=== PATIENT | male | born 1960 | race Caucasian/White ===

== ENCOUNTER → 2018-01-11 09:39 | Outpatient (CLI) | payer OTHER, SELFPAY ==
[2018-01-11 11:05] LABS: AST(SGOT) 35 U/L (15-37); Alanine Aminotransfer ALT/SGPT 27 U/L (16-61); Albumin, Serum 3.7 g/dL (3.2-5.0); Alkaline Phosphatase 75 U/L (45-117); Anion Gap 8 (5-15); BUN 21 mg/dL (7-18); BUN/Creat Ratio 16.3 RATIO (10-20); Calcium,Total 8.3 mg/dL (8.5-10.1); Chloride 107 mmol/L (98-107); Cholesterol 214 mg/dL (200); Creatinine, Serum 1.29 mg/dL (0.70-1.30); EST Glomerular Filtration Rate 61 mL/min (>60); Est Glom Filt Rate - Afr Amer 74 mL/min (>60); Globulin 3.8 g/dL (2.2-4.2); Glucose 94 mg/dL (74-106); High Density Lipoprotein 45 mg/dL; PSA,Total - Annual Screen 0.75 ng/mL (0.00-4.00); Potassium 3.9 mmol/L (3.5-5.1); Protein, Total 7.5 g/dL (6.4-8.2); Sodium Level 142 mmol/L (136-145); Thyroid Stim Hormone (TSH) 2.08 uIU/mL (0.358-3.74); Triglycerides 167 mg/dL; Very Low Density Lipoprotein 33 mg/dL (5-40)
== END ==
DX: F51.02 Adjustment insomnia (principal); F90.9 Attention-deficit hyperactivity disorder, unspecified type; E78.5 Hyperlipidemia, unspecified; Z12.5 Encounter for screening for malignant neoplasm of prostate; E03.9 Hypothyroidism, unspecified
CPT/HCPCS: 36415; 80053; 80061; 84153; 84443; G0103

== ENCOUNTER → 2018-09-28 08:51 | Outpatient (CLI) | payer OTHER, SELFPAY ==
[2018-09-28 09:23] LABS: Erythrocyte Sedimentation Rate 8 mm/hr (0-20)
[2018-09-28 09:24] LABS: Absolute Lymphocyte Count 1.51 X10^3/ul (0.83-4.51); Basophil# 0.03 X10^3/uL; Basophil% 0.6 % (0-1); Eosinophil# 0.12 X10^3/uL; Eosinophils% 2.3 % (0-5); Hemoglobin 14.8 g/dl (13.0-16.5); Lymphocyte # 1.51 X10^3/ul (4.0); Lymphocyte % 28.4 % (19-41); Mean Corp Hgb Conc 35.2 g/gl (32-36); Mean Corpuscular Hgb 30.7 pg (27.0-32.0); Mean Corpuscular Volume 87.1 fL (80-94); Monocyte# 0.66 X10^3/uL; Monocyte% 12.4 % (0-10); Neutrophil # 2.99 X10^3/uL (2.7-7.7); Neutrophil % 56.1 % (47-70); POSITIVE COUNT NO; POSITIVE DIFFERENTIAL NO; POSITIVE MORPHOLOGY NO; Platelet Count 184 K/mm3 (150-450); RBC Distribution Width CV 12.5 % (11.6-14.6); RBC Distribution Width SD 39.4 fl (35.1-43.9); Red Blood Count 4.82 M/mm3 (4.6-6.2); White Blood Count 5.3 K/mm3 (4.4-11.0)
[2018-09-28 09:52] LABS: AST(SGOT) 24 U/L (15-37); Alanine Aminotransfer ALT/SGPT 29 U/L (16-61); Albumin, Serum 3.7 g/dL (3.2-5.0); Alkaline Phosphatase 75 U/L (45-117); Anion Gap 7 (5-15); BUN 17 mg/dL (7-18); Calcium,Total 8.3 mg/dL (8.5-10.1); Chloride 107 mmol/L (98-107); Cholesterol 230 mg/dL (200); Creatinine, Serum 1.13 mg/dL (0.70-1.30); EST Glomerular Filtration Rate 71 mL/min (>60); Est Glom Filt Rate - Afr Amer 85 mL/min (>60); Globulin 3.7 g/dL (2.2-4.2); Glucose 98 mg/dL (74-106); High Density Lipoprotein 52 mg/dL; Protein, Total 7.4 g/dL (6.4-8.2); Rheumatoid Factor < 10.0 IU/mL (<15); Sodium Level 143 mmol/L (136-145); Thyroid Stim Hormone (TSH) 3.05 uIU/mL (0.358-3.74); Triglycerides 174 mg/dL; Uric Acid 5.7 mg/dL (3.5-7.2); Very Low Density Lipoprotein 35 mg/dL (5-40)
[2018-09-28 09:53] LABS: Vitamin D,25 Hydroxy 47.4 ng/mL (29.95-100.01)
[2018-09-30 13:29] LABS: ANTINUCLEAR ANTIBODIES DIRECT Negative (Negative)
[2018-10-01 11:30] LABS: ASO Titer 72.2 IU/mL (0.0-200.0)
== END ==
DX: E03.9 Hypothyroidism, unspecified (principal); E55.9 Vitamin D deficiency, unspecified; M25.50 Pain in unspecified joint; F41.1 Generalized anxiety disorder; E78.5 Hyperlipidemia, unspecified
CPT/HCPCS: 36415; 80053; 80061; 82306; 84443; 84550; 85025; 85652; 86038; 86060; 86431

== ENCOUNTER 2018-11-04 17:49 | Emergency (ER) | payer OTHER, SELFPAY ==
[2018-11-04] VITALS (8 sets, daily range): BP systolic 133–188; BP diastolic 83–104; PULSE 56–65; RESP 15–17; TEMP 35.7; O2SAT 96–99; BMI 31.8
--- NOTE | 2018-11-04 18:15 | EKG12_ITS ---
Test Reason : CHEST PAIN Blood Pressure : / mmHG Vent. Rate : 056 BPM Atrial Rate : 056 BPM P-R Int : 166 ms QRS Dur : 088 ms QT Int : 418 ms P-R-T Axes : 000 -37 011 degrees QTc Int : 403 ms Sinus bradycardia with sinus arrhythmia Left axis deviation Minimal voltage criteria for LVH, may be normal variant Septal infarct , age undetermined Abnormal ECG Confirmed by DARA LEÓN ([id number]), purchasing expeditor NEERU JENKINS ([id number]) on 11/22/2018 4:10:13 PM Referred By: JONI Confirmed By:DARA LEÓN
--- NOTE | 2018-11-04 18:18 | ED.VISSUMM ---
- ER Visit Summary Date of Service: 11/04/18 Chief Complaint: chest pressure History of Present Illness: The patient is a 58 M who presents for chest pressure with onset earlier today. Patient began having left-sided chest pressure with no radiation to the neck, arm, back, abdomen or right chest. It waxes and wanes in intensity. Patient was at work and under stress, running around when it started. He feels it got worse with exertion. He did not note anything that alleviated it. No associated cough, shortness of breath, sweating, nausea or vomiting, lightheadedness, fever, or any other symptoms. He took a full aspirin 2 hours ago. He noted his blood pressure to be elevated. He has no history of hypertension. No history of coronary artery disease, lung disease, diabetes, hypertension, diagnosed hypercholesterolemia. He does not smoke or drink alcohol. Physical Examination: Vital signs: afebrile, hypertensive at 188/104, no hypoxia on room air General: well nourished, well developed, in no distress Skin: warm, dry, no rash, no pallor HEENT: normocephalic and atraumatic; PERRL, EOMI, moist mucous membranes Cardiovascular: regular rate and rhythm without murmurs, no peripheral edema, 2+ pulses all distal extremities Respiratory: No increased work of breathing, lungs are clear to auscultation bilaterally, no rales, rhonchi or wheezing Abdominal: Abdomen is soft, nontender with normoactive bowel sounds, no guarding or rebound, no masses MSK: Moves all extremities, no deformities, normal strength Neuro: Awake and alert, oriented ?4. No facial droop, sensation and motor function intact and symmetric Test Results: Abnormal Lab Results 11/04/18 11/04/18 11/04/18 18:04 18:04 21:10 WBC 6.8 RBC 4.93 Hgb 15.1 Hct 42.7 MCV 86.6 MCH 30.6 MCHC 35.4 RDW 12.5 RDW Differential 38.8 Plt Count 205 MPV 9.1 Immature Gran % (Auto) 0.100 Neut % (Auto) 58.4 Lymph % (Auto) 27.9 Alfalfa % (Auto) 11.7 H Eos % (Auto) 1.5 Baso % (Auto) 0.4 Absolute Neuts (auto) 4.0 Absolute Lymphs (auto) 1.90 Total Counted Not Reportable Sodium 141 Potassium 3.8 Chloride 104 Carbon Dioxide 27.0 Anion Gap 10 BUN 16 Creatinine 1.04 Estim Creat Clear Calc 81.45 Est GFR (MDRD) Af Amer 94 Est GFR (MDRD) Non-Af 78 BUN/Creatinine Ratio 15.4 Glucose 92 Calcium 8.8 Troponin I < 0.015 < 0.015 Clinical Impression(s) from Imaging Studies Chest X-Ray 11/04/18 18:38 IMPRESSION: Normal x-ray examination of the chest. Electronically Signed: Sam Waller MD at 18:59 EST , Service support , Medications Given Discontinued Medications Nitroglycerin (Nitrostat) 0.4 mg SUBLINGUAL Q5M BILL Stop: 11/04/18 18:26 Last Admin: 11/04/18 18:52 Dose: Not Given Admin: 11/04/18 18:51 Dose: Not Given Admin: 11/04/18 18:30 Dose: 0.4 mg Nitroglycerin (Nitrostat) 0.4 mg SUBLINGUAL X1 ONE Stop: 11/04/18 20:55 Last Admin: 11/04/18 20:55 Dose: 0.4 mg Emergency Department Course and Treatment: Patient took aspirin prior to arrival. He was given nitroglycerin, as he is still having very low level chest pressure rated 1 out of 10. Chest pain workup was performed. EKG showed a sinus rhythm with no ischemic changes. Initial troponin negative. Chest x-ray showed no acute process. CBC and BMP were unremarkable. Patient was pain-free on reevaluation. His blood pressure improved with rest during his workup. We discussed his risk factors for acute coronary syndrome, and given his age and medical history, he has a HEART score of 3. A 3-hour repeat EKG and troponin were unchanged from the initial ones. Patient's blood pressure at time of discharge was 133/86, much improved from his initial hypertension at presentation. We discussed that patient needs to follow-up with his primary care doctor for repeat evaluation of his blood pressure, as he may require antihypertensives. None were started today. Patient is to follow-up with his primary care doctor for further discussion of his chest pain and possible stress test. Patient agreed with this plan was discharged home in improved condition. Treatment Plan: [] Disposition: [] Impression: Chest pain, hypertension This note was generated with Transfer To dictation software. It may contain incorrect words, spelling, and punctuation that were not noted in review of the chart prior to signing ED Disposition - Plan for ED Patient: Disposition: Home or Assisted Living Chief Complaint: Chest Pain Instructions: ED Chest Pain Atypical Unkn Cause, ED Hypertension Poss Referrals: [facility] Doctor,Out of [Primary Care Provider] - Additional Instructions: Follow-up with your doctor as soon as possible for reevaluation of your blood pressure. Also follow-up for further workup of your chest pain. EKGs and troponins today did not show any signs of a heart attack, however you would benefit from a stress test and further close monitoring by your doctor. If you have any worsening of your condition or any new concerning symptoms, please return immediately to the emergency department for another evaluation.
[2018-11-04 18:25] LABS: Basophil# 0.03 X10^3/uL; Basophil% 0.4 % (0-1); Eosinophils% 1.5 % (0-5); Hematocrit 42.7 % (40-54); Hemoglobin 15.1 g/dl (13.0-16.5); Lymphocyte % 27.9 % (19-41); Mean Corp Hgb Conc 35.4 g/gl (32-36); Mean Corpuscular Hgb 30.6 pg (27.0-32.0); Mean Corpuscular Volume 86.6 fL (80-94); Mean Platelet Vol. 9.1 fl (6.2-12.0); Monocyte% 11.7 % (0-10); Neutrophil # 3.97 X10^3/uL (2.7-7.7); Neutrophil % 58.4 % (47-70); Platelet Count 205 K/mm3 (150-450); RBC Distribution Width CV 12.5 % (11.6-14.6); RBC Distribution Width SD 38.8 fl (35.1-43.9); Red Blood Count 4.93 M/mm3 (4.6-6.2); White Blood Count 6.8 K/mm3 (4.4-11.0)
[2018-11-04 18:26] LABS: POSITIVE COUNT NO; POSITIVE DIFFERENTIAL NO; POSITIVE MORPHOLOGY NO
[2018-11-04 18:37] LABS: Anion Gap 10 (5-15); BUN 16 mg/dL (7-18); BUN/Creat Ratio 15.4 RATIO (10-20); Calcium,Total 8.8 mg/dL (8.5-10.1); Chloride 104 mmol/L (98-107); Creatinine, Serum 1.04 mg/dL (0.70-1.30); EST Glomerular Filtration Rate 78 mL/min (>60); Est Glom Filt Rate - Afr Amer 94 mL/min (>60); Estimated Creatinine Clearance 81.45 ml/min; Glucose 92 mg/dL (74-106); Potassium 3.8 mmol/L (3.5-5.1); Sodium Level 141 mmol/L (136-145)
--- NOTE | 2018-11-04 18:38 | RAD_ITS ---
STUDY: X-RAY CHEST REASON FOR EXAM: Male, 58 years old. Chest pain/pressure TECHNIQUE: PA and lateral views of the chest. COMPARISON: None. FINDINGS: EKG leads overlie the chest The lungs are clear and expanded. There is no demonstrated pleural abnormality. Normal size heart. Normal mediastinum and joseph. Normal visualized pulmonary arteries. Normal visualized aortic arch and descending thoracic aorta. Normal visualized thoracic spine. Normal visualized ribs, clavicles, and shoulders. There is no demonstrated abnormality of the visualized soft tissue structures of the upper abdomen. RAD/Chest PA and Lateral IMPRESSION: Normal x-ray examination of the chest. Electronically Signed: Sam Waller MD at 18:59 EST , Service support ,
--- NOTE | 2018-11-04 21:51 | ED.DEP ---
ED Disposition - Plan for ED Patient: Disposition: Home or Assisted Living Chief Complaint: Chest Pain Instructions: ED Chest Pain Atypical Unkn Cause, ED Hypertension Poss Referrals: [facility] Doctor,Out of [Primary Care Provider] - Additional Instructions: Follow-up with your doctor as soon as possible for reevaluation of your blood pressure. Also follow-up for further workup of your chest pain. EKGs and troponins today did not show any signs of a heart attack, however you would benefit from a stress test and further close monitoring by your doctor. If you have any worsening of your condition or any new concerning symptoms, please return immediately to the emergency department for another evaluation.
== END 2018-11-04 22:10 | disposition home or self-care (01) ==
PROVIDERS: Emergency Provider Emergency Medicine
DX: R07.89 Other chest pain (principal); I10 Essential (primary) hypertension
CPT/HCPCS: 36415; 71046; 80048; 84484; 85025; 93005; 99285; A4216

== ENCOUNTER → 2019-01-02 12:25 | Outpatient (CLI) | payer OTHER, SELFPAY ==
[2018-12-20 13:05] VITALS: BMI 31.9
--- NOTE | 2019-01-02 12:43 | CT_ITS ---
STUDY: CT ABDOMEN AND PELVIS WITH CONTRAST REASON FOR EXAM: Male, 58 years old. Abdominal pain. RADIATION DOSAGE (If Supplied By Facility): CTDIvol = ( 17.17 ) mGy, DLP = ( 1102.04 ) mGycm TECHNIQUE: Transaxial images were obtained from the dome of the diaphragm to the symphysis pubis without oral contrast. Isovue 300 100ml IV/Oral was administered. Sagittal and coronal images were reconstructed. Individualized dose optimization techniques were used for this CT. COMPARISON: None. FINDINGS: The visualized lung bases are unremarkable. The visualized portions of the heart are within normal limits. Normal liver. Normal gallbladder and extrahepatic biliary system. Normal spleen. Normal pancreas. Normal bilateral adrenal glands. Normal right kidney. Normal left kidney. Normal visualized stomach. Normal small intestine. There are multiple colonic diverticula consistent with diverticulosis. The appendix is visualized and appears normal. Normal abdominal aorta. Normal inferior vena cava. Normal retroperitoneum. Mild degree of diffuse bladder wall thickening. There are prostatic calcifications. Bilateral inguinal hernias containing fat worse on the left side. There are mild degenerative changes of the visualized lumbar spine. CT/Abdomen/Pelvis WITH Contrast IMPRESSION: Bilateral inguinal hernias containing fat worse on the left side. Prostatic calcification. Bladder wall thickening. Electronically Signed: Frank Montes MD at 15:43 EST , Service support ,
[2019-01-02 12:45] LABS: Absolute Lymphocyte Count 1.74 X10^3/ul (0.83-4.51); Absolute Neutrophil Count 4.1 X10^3/uL (2.0-7.7); Basophil# 0.02 X10^3/uL; Basophil% 0.3 % (0-1); Eosinophil# 0.07 X10^3/uL; Eosinophils% 1.1 % (0-5); Hematocrit 46.7 % (40-54); Hemoglobin 15.6 g/dl (13.0-16.5); Lymphocyte # 1.74 X10^3/ul (4.0); Lymphocyte % 26.1 % (19-41); Mean Corp Hgb Conc 33.4 g/gl (32-36); Mean Corpuscular Hgb 29.8 pg (27.0-32.0); Mean Corpuscular Volume 89.1 fL (80-94); Mean Platelet Vol. 9.3 fl (6.2-12.0); Monocyte# 0.72 X10^3/uL; Monocyte% 10.8 % (0-10); Neutrophil % 61.5 % (47-70); Platelet Count 187 K/mm3 (150-450); RBC Distribution Width CV 12.8 % (11.6-14.6); RBC Distribution Width SD 41.7 fl (35.1-43.9); Red Blood Count 5.24 M/mm3 (4.6-6.2); White Blood Count 6.7 K/mm3 (4.4-11.0)
[2019-01-02 12:46] LABS: POSITIVE COUNT NO; POSITIVE DIFFERENTIAL NO; POSITIVE MORPHOLOGY NO
[2019-01-02 13:19] LABS: AST(SGOT) 20 U/L (15-37); Alanine Aminotransfer ALT/SGPT 29 U/L (16-61); Albumin, Serum 4.2 g/dL (3.2-5.0); Alkaline Phosphatase 91 U/L (45-117); Anion Gap 9 (5-15); BUN 13 mg/dL (7-18); BUN/Creat Ratio 10.6 RATIO (10-20); Calcium,Total 9.2 mg/dL (8.5-10.1); Chloride 102 mmol/L (98-107); Creatinine, Serum 1.23 mg/dL (0.70-1.30); EST Glomerular Filtration Rate 64 mL/min (>60); Est Glom Filt Rate - Afr Amer 77 mL/min (>60); Globulin 4.2 g/dL (2.2-4.2); Glucose 105 mg/dL (74-106); Potassium 4.2 mmol/L (3.5-5.1); Protein, Total 8.4 g/dL (6.4-8.2); Sodium Level 139 mmol/L (136-145)
== END ==
PROVIDERS: Family Provider Nurse Practitioner Family; PCP Nurse Practitioner Family; Referring Provider Nurse Practitioner Family; Visit Provider Nurse Practitioner Family
DX: R10.9 Unspecified abdominal pain (principal); K92.1 Melena; R11.0 Nausea
CPT/HCPCS: 36415; 74177; 80053; 85025; Q9967

== ENCOUNTER → 2019-01-03 06:32 | Outpatient (CLI) | payer OTHER, SELFPAY ==
[2018-12-20 13:05] VITALS: BMI 31.9
--- NOTE | 2019-01-03 06:34 | ECHOD_ITS ---
Reason For Study: HYPERTENSION Procedure This was a 2D Doppler, Color Flow transthoracic echocardiogram. Exam performed in department. Left Ventricle Normal LV size. Left ventricular systolic function is normal. The estimated ejection fraction is 55 %. Stage 1 diastolic dysfunction. No regional wall motion abnormalities noted. Right Ventricle Normal RV size. Normal systolic function. Atria Normal left atrium. Normal right atrium. Bubble contrast study negative for right to left interatrial shunt. Mitral Valve Normal mitral valve. Tricuspid Valve Normal tricuspid valve. Aortic Valve Trisinus/trileaflet aortic valve. Pulmonic Valve Normal pulmonic valve. Great Vessels Normal aortic root. The pulmonary artery is normal size. Normal inferior vena cava. Pericardium/Pleural No pericardial effusion. Medication Performed a rapid injection of agitated mix of 9 cc saline and 1cc air to assess for atrial septal defect. MMode/2D Measurements & Calculations LVIDd: 4.8 cm IVSd: 0.94 cm Ao root diam: 3.2 cm LVIDs: 3.4 cm LVPWd: 0.95 cm RVDd: 4.1 cm FS: 28.3 % LAV(MOD-bp): 42.3 ml LVAd ap4: 34.0 cm2 SV(MOD-sp4): 67.6 ml LAV(MOD-bp) Indexed: 19.0 ml/m2 EDV(MOD-sp4): 111.3 ml LAV(MOD-sp2): 53.2 ml EDV(sp4-el): 112.3 ml LAV(MOD-sp4): 29.7 ml LVAs ap4: 18.6 cm2 ESV(MOD-sp4): 43.7 ml ESV(sp4-el): 43.3 ml EF(MOD-sp4): 60.7 % EF(sp4-el): 61.5 % SV(sp4-el): 69.1 ml LA A4 area: 13.8 cm2 LA dimension(2D): 3.7 cm RA A4 area: 11.8 cm2 Time Measurements MV dec time: 0.29 sec Doppler Measurements & Calculations MV E max smith: 38.9 cm/sec Lat Peak E' Smith: 8.8 cm/sec Med Peak E' Smith: 8.0 cm/sec MV A max smith: 92.5 cm/sec E/E' lat: 4.4 E/E' med: 4.9 MV E/A: 0.42 Ao V2 max: 135.1 cm/sec LV V1 max: 104.1 cm/sec PA V2 max: 88.1 cm/sec Ao max P.3 mmHg LV V1 max P.3 mmHg Interpretation Summary Normal LV size. Left ventricular systolic function is normal. The estimated ejection fraction is 55 %. No regional wall motion abnormalities noted. Stage 1 diastolic dysfunction. Bubble contrast study negative for right to left interatrial shunt. Ordering Physician: Zach Clarke Referring Physician: Zach Clarke Performed By: Julianna Garcia RDCS
[2019-01-05 11:32] LABS: H. PYLORI STOOL AG Negative (Negative)
== END ==
PROVIDERS: Referring Provider Internal Medicine Cardiovascular Disease; Visit Provider Internal Medicine Cardiovascular Disease
DX: I10 Essential (primary) hypertension (principal); R07.9 Chest pain, unspecified; R10.9 Unspecified abdominal pain; K92.1 Melena
CPT/HCPCS: 78452; 82274; 93017; 93306; A9500; A4216

== ENCOUNTER → 2019-01-22 13:18 | Outpatient (CLI) | payer OTHER, SELFPAY ==
[2018-12-20 13:05] VITALS: BMI 31.9
--- NOTE | 2019-01-03 09:13 | STRESSREP ---
Stress Test Report Exercise myocardial perfusion stress test. 58-year-old man with a history of chest pain. Stress protocol: Resting EKG demonstrates normal sinus rhythm with a rate of 61 bpm normal intervals are noted resting blood pressure 116/80 mmHg. The patient exercised according to regular Andrzej protocol for a total duration of 12 minutes the maximum heart rate attained was 151 bpm which was 93% of maximum predicted heart rate the maximum workload was 13.7 metabolic equivalents. Patient completed stage IV of the Andrzej protocol. At rest there were no ST or T wave changes noted suggest ischemia at peak exercise upsloping ST changes only were noted with no meet the criteria for ischemia. No clinical angina was noted. The resting blood pressure was 116/80 mmHg with a peak blood pressure 164/76 mmHg rate pressure product was 24,600. Myocardial perfusion protocol. 14.2 mCi of technetium 99m sestamibi was injected at rest. The patient exercised according to regular Andrzej protocol for 12 minutes at peak exercise 43.9 mCi of technetium 99m sestamibi was injected stress images were obtained stress and rest images were reconstructed and compared in the short axis vertical long horizontal long axis. Gated images were also obtained per Perfusion SPECT analysis: Review of the stress images demonstrate normal uptake of tracer noted in all areas of the myocardium. The resting images similarly demonstrate normal uptake of tracer noted in all areas myocardium. No areas of reversibility are noted suggest ischemia. Gated SPECT analysis: Gated ejection fraction is noted to be 58%. Conclusion: Normal exercise myocardial perfusion stress test at a high workload. Preserved ejection fraction. Excellent functional capacity.
--- NOTE | 2019-01-03 09:17 | STRESSREP_ITS ---
Stress Test Report Exercise myocardial perfusion stress test. 58-year-old man with a history of chest pain. Stress protocol: Resting EKG demonstrates normal sinus rhythm with a rate of 61 bpm normal intervals are noted resting blood pressure 116/80 mmHg. The patient exercised according to regular Andrzej protocol for a total duration of 12 minutes the maxi mum heart rate attained was 151 bpm which was 93% of maximum predicted heart rate the maximum workload was 13.7 metabolic equivalents. Patient completed stage IV of the Andrzej protocol. At rest there were no ST or T wave changes noted suggest ischemia at peak exercise upsloping ST changes only were noted with no meet the criteria for ischemia. No clinical angina was noted. The resting blood pressure was 116/80 mmHg with a peak blood pressure 164/76 mmHg rate pressure product was 24,600. Myocardial perfusion protocol. 14.2 mCi of technetium 99m sestamibi was injected at rest. The patient e xercised according to regular Andrzej protocol for 12 minutes at peak exercise 43.9 mCi of technetium 99m sestamibi was injected stress images were obtained stress and rest images were reconstructed and compared in the short axis vertical long horizontal long axis. Gated images were also obtained per Perfusion SPECT analysis: Review of the stress images demonstrate normal uptake of tracer noted in all areas of the myocardium. The resting images similarly demonstrate normal uptake of tracer noted in all areas myocardium. No areas of reversibility are noted suggest ischemia. Gated SPECT analysis: Gated ejection fraction is noted to be 58%. Conclusion: Normal exercise myocardial perfusion stress test at a high workload. Preserved ejection fraction. Excellent functional capacity.
--- NOTE | 2019-01-22 13:25 | CT_ITS ---
STUDY: CT CHEST WITHOUT CONTRAST REASON FOR EXAM: Male, 58 years old. Chest pain. Calcium scoring examination. Radiological over read study. RADIATION DOSAGE (If Supplied By Facility): CTDIvol = ( 12.19 ) mGy, DLP = ( 243.79 ) mGycm TECHNIQUE: Transaxial imaging was performed without the administration of intravenous contrast material. Individualized dose optimization techniques were used for this CT. COMPARISON: None. FINDINGS: Small bilateral axillary lymph nodes. Mild degree of dependent bibasilar atelectasis. There is no demonstrated pleural abnormality. Normal heart and pericardium. There are multiple small lymph nodes within the mediastinum, which are normal in size and morphology most compatible with reactive lymph hyperplasia. Normal hilar regions. Normal unenhanced pulmonary arteries. Normal aorta arch and descending thoracic aorta. There are multi-level degenerative changes of the thoracic spine. There is no demonstrated abnormality of the visualized upper abdomen. CT/Limited Chest CT w/CCTA IMPRESSION: Mild degree of dependent bibasilar atelectasis. Electronically Signed: Frank Montes, at 9:55 EDT , Service support ,
[2019-01-22 13:37] VITALS: BP 132/76; PULSE 60; RESP 16; O2SAT 96; BMI 30.9
--- NOTE | 2019-01-22 19:17 | CA.SCORE ---
Calcium Scoring Date of Study:: 01/22/19 Coronary Calcium Scoring: Coronary calcium score. High-resolution computed tomographic imaging of the chest was performed on 01/22/2019. Those particular attention paid to the coronary arteries. Images from the examination were analyzed for the presence and extent of coronary artery calcification using the coronary calcification cortication software. The patient tolerated the procedure well and there were no complications. The results of the coronary consultation analysis are provided below along with cross-sectional images. Coronary artery Left main score 0 Left anterior descending artery score 0 Left circumflex artery score 0 Right coronary artery score 0 Total Manjit score 0 The patient is noted to be in the 0 percentile ranking range. Interpretation: The above suggests no identifiable atherosclerotic plaque with very low cardiovascular disease risk.
== END ==
PROVIDERS: Referring Provider Internal Medicine Cardiovascular Disease; Visit Provider Internal Medicine Cardiovascular Disease
DX: R07.9 Chest pain, unspecified (principal)
CPT/HCPCS: 75571; 76380

== ENCOUNTER → 2019-07-20 10:47 | Outpatient (CLI) | payer OTHER, SELFPAY ==
[2019-01-24 08:33] VITALS: BMI 30.9
[2019-07-20 11:01] LABS: Mucous, Urine 0 SEEN /hpf (<or=2+)
[2019-07-20 11:58] LABS: Hematocrit 43.1 % (40-54); Hemoglobin 14.5 g/dL (13.0-16.5); Mean Corp Hgb Conc 33.6 g/dL (32-36); Mean Corpuscular Hgb 30.3 pg (27.0-32.0); Mean Platelet Vol. 9.1 fl (6.2-12.0); Platelet Count 206 K/mm3 (150-450); RBC Distribution Width CV 12.2 % (11.6-14.6); RBC Distribution Width SD 40.2 fl (35.1-43.9); Red Blood Count 4.79 M/mm3 (4.6-6.2); White Blood Count 6.2 K/mm3 (4.4-11.0)
[2019-07-20 12:04] LABS: Color, Urine Yellow (Yellow); Glucose, Dipstick Normal (Normal); Ketone-Dipstick Negative (Negative); Leukocyte Esterase-Dipstick Negative /ul (Negative); Nitrite-Dipstick Negative (Negative); Occult Blood-Urine 10 /ul (Negative); Protein-Dipstick Negative (Negative); Urine Bilirubin Dipstick Negative (Negative); Urine Clarity Clear (Clear); Urine Urobilinogen 1 mg/dl (Normal); Urine pH 6.5 (5.0 - 8.0)
[2019-07-20 12:12] LABS: White Blood Cells 0-5 SEEN /hpf (0-5)
[2019-07-20 12:13] LABS: Bacteria RARE /hpf (None Seen); Red Blood Cells-Urine 0-5 SEEN /hpf (0-5); Squamous Epithelial Cells - UA 0-5 SEEN /hpf (0-5)
[2019-07-20 12:41] LABS: AST(SGOT) 23 U/L (15-37); Alanine Aminotransfer ALT/SGPT 27 U/L (16-61); Albumin, Serum 3.7 g/dL (3.2-5.0); Alkaline Phosphatase 78 U/L (45-117); Anion Gap 7 (5-15); BUN 20 mg/dL (7-18); BUN/Creat Ratio 19.8 RATIO (10-20); Calcium,Total 8.6 mg/dL (8.5-10.1); Chloride 109 mmol/L (98-107); Cholesterol 216 mg/dL (200); Creatinine, Serum 1.01 mg/dL (0.70-1.30); EST Glomerular Filtration Rate 80 mL/min (>60); Est Glom Filt Rate - Afr Amer 97 mL/min (>60); Globulin 3.7 g/dL (2.2-4.2); Glucose 99 mg/dL (74-106); High Density Lipoprotein 54 mg/dL; Protein, Total 7.4 g/dL (6.4-8.2); Sodium Level 143 mmol/L (136-145); Thyroid Stim Hormone (TSH) 1.35 uIU/mL (0.358-3.74); Triglycerides 140 mg/dL; Very Low Density Lipoprotein 28 mg/dL (5-40); Vitamin D,25 Hydroxy 50.9 ng/mL (29.95-100.01)
== END ==
DX: E78.2 Mixed hyperlipidemia (principal); G25.81 Restless legs syndrome; E55.9 Vitamin D deficiency, unspecified
CPT/HCPCS: 36415; 80053; 80061; 81001; 82306; 84443; 85027

== ENCOUNTER → 2020-03-26 10:06 | Outpatient (CLI) | payer OTHER, SELFPAY ==
[2020-01-24 09:48] VITALS: BMI 31.1
[2020-03-26 11:43] LABS: AST(SGOT) 27 U/L (15-37); Alanine Aminotransfer ALT/SGPT 29 U/L (16-61); Albumin, Serum 3.8 g/dL (3.2-5.0); Alkaline Phosphatase 80 U/L (45-117); Anion Gap 5 (5-15); BUN 16 mg/dL (7-18); BUN/Creat Ratio 14.8 RATIO (10-20); Calcium,Total 8.6 mg/dL (8.5-10.1); Chloride 104 mmol/L (98-107); Cholesterol 260 mg/dL (200); Creatinine, Serum 1.08 mg/dL (0.70-1.30); EST Glomerular Filtration Rate 74 mL/min (>60); Est Glom Filt Rate - Afr Amer 90 mL/min (>60); Globulin 3.7 g/dL (2.2-4.2); Glucose 97 mg/dL (74-106); High Density Lipoprotein 55 mg/dL; Potassium 4.2 mmol/L (3.5-5.1); Protein, Total 7.5 g/dL (6.4-8.2); Sodium Level 140 mmol/L (136-145); Thyroid Stim Hormone (TSH) 2.53 uIU/mL (0.358-3.74); Triglycerides 225 mg/dL; Very Low Density Lipoprotein 45 mg/dL (5-40)
== END ==
DX: I10 Essential (primary) hypertension (principal); E03.9 Hypothyroidism, unspecified; E78.2 Mixed hyperlipidemia
CPT/HCPCS: 36415; 80053; 80061; 84443

== ENCOUNTER → 2020-10-07 08:27 | Outpatient (CLI) | payer OTHER, SELFPAY ==
[2020-01-24 09:48] VITALS: BMI 31.1
[2020-10-07 10:01] LABS: Cholesterol 242 mg/dL (200); High Density Lipoprotein 60 mg/dL; PSA,Total - Annual Screen 0.75 ng/mL (0.00-4.00); Triglycerides 84 mg/dL; Very Low Density Lipoprotein 17 mg/dL (5-40)
== END ==
DX: E78.5 Hyperlipidemia, unspecified (principal); Z12.5 Encounter for screening for malignant neoplasm of prostate
CPT/HCPCS: 36415; 80061; 84153; G0103

== ENCOUNTER → 2021-03-31 08:06 | Outpatient (CLI) | payer OTHER, SELFPAY ==
[2021-01-30 09:51] VITALS: BMI 30.9
[2021-03-31 09:24] LABS: Cholesterol 260 mg/dL (200); High Density Lipoprotein 57 mg/dL; Thyroid Stim Hormone (TSH) 2.17 uIU/mL (0.358-3.74); Triglycerides 119 mg/dL; Very Low Density Lipoprotein 24 mg/dL (5-40)
== END ==
DX: E78.5 Hyperlipidemia, unspecified (principal); E03.9 Hypothyroidism, unspecified; R53.83 Other fatigue
CPT/HCPCS: 36415; 80061; 84403; 84443

== ENCOUNTER 2022-07-24 21:00 | Emergency (ER) | payer OTHER, SELFPAY ==
[2022-07-24 21:02] VITALS: BP 142/75; PULSE 64; RESP 18; TEMP 36.6; O2SAT 100; BMI 29.4
--- NOTE | 2022-07-24 21:17 | EDS_ITS ---
HPI History of Present Illness Chief Complaint: Wound Check Informant: patient Narrative Narrative: Patient stepped on a nail at about 130 this afternoon. He states it did not hurt that much but is hurting a little bit more this evening. He had little drainage of fluid from it. No fevers or chills. He got into the distal portion of his left foot just medial to the left great toe. No numbness tingling. Patient's concern is that he has had 2 total knee replacements and he would like to avoid infections. He has tolerated and used Augmentin before. He thinks his last tetanus was a the end of 2020. He is checking in with his to be certain [facility] Medical History (Updated 07/24/22 @ 21:[address] Live Brennan MD) ADHD (attention deficit hyperactivity disorder) Essential (primary) hypertension SLOAN (generalized anxiety disorder) Hyperlipidemia Hyperlipidemia Hypothyroidism Nicotine dependence Obesity Obstructive sleep apnea RLS (restless legs syndrome) Home Medications aspirin 81 mg chewable tablet 81 mg PO DAILY@0800 11/04/18 [History Last Taken Unknown] ergocalciferol (vitamin D2) 1,250 mcg (50,000 unit) capsule 50,000 unit PO Q7D 11/04/18 [History Last Taken Unknown] meloxicam 15 mg tablet 15 mg PO DAILY 11/04/18 [History Last Taken Unknown] multivitamin with folic acid 400 mcg tablet 1 tab PO DAILY 11/04/18 [History Last Taken Unknown] zolpidem 12.5 mg tablet,extended release,multiphase 12.5 mg PO QHS PRN PRN Sleep 11/04/18 [History Last Taken Unknown] levothyroxine 150 mcg tablet PO 30 days #30 tabs 12/19/18 [History Last Taken Unknown] lisdexamfetamine 40 mg capsule (Vyvanse) 40 mg PO DAILY 12/19/18 [History Last Taken Unknown] lisinopril 20 mg tablet 20 mg PO DAILY #90 tabs 01/24/19 [Rx Last Taken Unknown] fluoxetine 40 mg capsule 40 mg PO DAILY 01/24/20 [History Last Taken Unknown] bupropion HCl 300 mg 24 hr tablet, extended release 300 mg PO DAILY 01/30/21 [History Last Taken Unknown] pantoprazole 40 mg tablet,delayed release 40 mg PO DAILY 01/30/21 [History Last Taken Unknown] amoxicillin 875 mg-potassium clavulanate 125 mg tablet 1 tab PO BID #20 tabs 07/24/22 [Rx Last Taken Unknown] Allergy/AdvReac Type Severity Reaction Status Date / Time chlorhexidine AdvReac Rash Verified 07/24/22 21:02 Family History Mother Heart disease Brother Kidney disease Surgical History H/O arthroscopic knee surgery History of herniorrhaphy (12/2020) Social History Smoking Status: Never smoker alcohol intake: former year quit: 1984 ROS ROS ED Constitutional Constitutional ED: Denies chills, fever(s) or subjective Gastrointestinal Gastrointestinal: Denies nausea or vomiting Musculoskeletal Musculoskeletal: Reports arthralgias and other Details: Left foot pain. Integumentary Reports other Details: Puncture in left foot Neurologic Neurologic: Denies paresthesias Endocrine Endocrinology: Denies polydipsia or polyuria Hematologic/Lymphatic Hematologic/Lymphatic: Denies easy bleeding or easy bruising Allergic/Immunologic Allergic/Immunologic ED: Denies urticaria EXAM Physical Exam Const Vital Signs: 07/24/22 21:02 Temperature 97.8 F Temperature Source Temporal Pulse Rate 64 Respiratory Rate 18 Blood Pressure 142/75 H Blood Pressure Mean 97 Pulse Ox 100 Oxygen Delivery Method Room Air Positive well nourished and well developed General Appearance ED: well developed and NAD Eyes EOMs intact bilaterally Resp normal respiratory effort Cardio regular rate Extremity Extremity Narrative: There is a small darkened area of skin to the very distal portion of his left foot on the plantar surface just medial to the great toe area. There is a little bit of clear serous fluid from this. There is no erythema. Neuro no sensory deficits noted Skin Skin Narrative: See above. MDM MDM MDM Narrative Medical decision making narrative: Three-view x-ray of his left foot looked at by me shows no sign of definitive foreign body. The area where this puncture occurred is very distal. It is certainly possible there could be a small foreign body or a radiolucent foreign body in the area. By his history he stepped on a nail not on wood. Even without seeing foreign body, he has pain a puncture and has artificial joints and I think antibiotic treatment is appropriate. He was able to contact his . She is not sure if he had a tetanus shot at the end of the year. This will be given today. Discharge Plan Triage Chief Complaint: Wound Check ED Provider: Live Brennan Dx/Rx/DC Orders Clinical Impression: Puncture wound of plantar aspect of left foot Instructions: ED Puncture Wound (Foot) Prescriptions: New amoxicillin-pot clavulanate 875-125 mg tablet 1 tab PO BID Qty: 20 0RF No Action Vyvanse 40 mg capsule 40 mg PO DAILY levothyroxine 150 mcg tablet PO 30 Days Qty: 30 lisinopril 20 mg tablet 20 mg PO DAILY Qty: 90 3RF fluoxetine 40 mg capsule 40 mg PO DAILY bupropion HCl 300 mg tablet extended release 24 hr 300 mg PO DAILY Label Comments: TAKE 1 TABLET BY MOUTH ONCE DAILY pantoprazole 40 mg tablet,delayed release (DR/EC) 40 mg PO DAILY meloxicam 15 MG tablet 15 mg PO DAILY aspirin 81 MG tablet,chewable 81 mg PO DAILY@0800 ergocalciferol (vitamin D2) 50,000 UNIT capsule 50,000 unit PO Q7D zolpidem 12.5 MG tablet,ext release multiphase 12.5 mg PO QHS PRN PRN (Reason: Sleep) multivitamin with folic acid 1 TABLET tablet 1 tab PO DAILY Primary Care Provider: Care Physician,No Primary Referrals: Tomy Webber DO [Med Staff - Active Staff] - 2 Days for wound check NOT,DEFINED [Non-Staff] - Activity Restrictions/Additional Instructions: Follow-up with your private physician, orthopedic surgeon, or Dr. Webber if not better in a few days. Disposition Disposition: Home, Self Care
--- NOTE | 2022-07-24 21:24 | RAD_ITS ---
STUDY: LEFT FOOT X-RAY SERIES OF 2125 HOURS ON 07/24/2022 CLINICAL: 61-year-old male who stepped on a nail. TECHNIQUE: 3 view(s) of the foot. COMPARISON: None. FINDINGS: There is mild soft tissue swelling at the site of the patient''s injury. There is no evidence of radiopaque foreign bodies or subcutaneous emphysema. There is no evidence of fractures or dislocations. No arthritic or degenerative changes. Very small calcaneal spur. RAD/Foot min 3 Views IMPRESSION: 1. Mild soft tissue swelling at the site of the patient''s injury. 2. No radiopaque foreign bodies or subcutaneous gas emphysema in the subcutaneous tissues. 3. No fractures or dislocations. 4. No arthritic or degenerative changes. 5. Very small calcaneal spur. Electronically Signed: Giovany Jean-Baptiste MD at 22:14 EDT ,
[2022-07-24] MEDS: Amox/Clavulanate 875 MG Tablet PO (21:29)
[2022-07-24] MEDS: Diphth,Pertuss(Acell),Tet Vac 0.5 ML Vial IM (22:01)
== END 2022-07-24 22:03 | disposition home or self-care (01) ==
PROVIDERS: Emergency Provider Emergency Medicine; Visit Provider Emergency Medicine
DX: S91.332A Puncture wound without foreign body, left foot, initial encounter (principal); W45.0XXA Nail entering through skin, initial encounter; Z23 Encounter for immunization; I10 Essential (primary) hypertension; E78.5 Hyperlipidemia, unspecified; E03.9 Hypothyroidism, unspecified; G47.33 Obstructive sleep apnea (adult) (pediatric); G25.81 Restless legs syndrome; F41.1 Generalized anxiety disorder; F90.9 Attention-deficit hyperactivity disorder, unspecified type; E66.9 Obesity, unspecified; Z79.82 Long term (current) use of aspirin; Z79.1 Long term (current) use of non-steroidal anti-inflammatories (NSAID); Z79.890 Hormone replacement therapy; Z79.899 Other long term (current) drug therapy; Z87.891 Personal history of nicotine dependence
CPT/HCPCS: 73630; 90471; 99282